=== PATIENT | female | born 1990 | race Caucasian/White ===

== ENCOUNTER 2018-03-09 18:21 | Emergency (ER) | payer OTHER ==
[~2018-03-09] VITALS: Ht 165.1 cm; Wt 83.9 kg
[2018-03-09] MEDS ORDERED: VITATRUE COMBO1 EACH (18:55)
== END 2018-03-09 23:28 | disposition home or self-care (01) ==
LOC: ER 18:21
DX: O20.0 Threatened abortion (principal)